=== PATIENT | female | born 2000 | race Two or more races ===

== ENCOUNTER 2022-11-30 10:35 | Emergency (ER) | payer BC, OTHER ==
[2022-11-30 10:51] VITALS: BP 141/91; PULSE 75; RESP 18; TEMP 98.1; O2SAT 100
[2022-11-30] MEDS ORDERED: AMOX500T86 PO (10:55)
[2022-11-30] MEDS ORDERED: TETANUS-DIPTH-ACEL PERTUSSIS 0.5ML SYR Tdap IM ONE (11:00)
== END 2022-11-30 11:05 | disposition home or self-care (01) ==
LOC: ER 10:35
DX: S61.032A Puncture wound without foreign body of left thumb without damage to nail, initial encounter (principal); W53.01XA Bitten by mouse, initial encounter; Y93.89 Activity, other specified; Y92.89 Other specified places as the place of occurrence of the external cause; Y99.8 Other external cause status
CPT/HCPCS: 90471; 90715